=== PATIENT | female | born 1975 | race Caucasian/White ===

== ENCOUNTER 2018-04-23 13:38 | Outpatient (CLI) | payer MEDICAID ==
--- NOTE | 2018-04-23 16:28 | MMO ---
BILATERAL SCREENING MAMMOGRAM: Date: 04/23/18 HISTORY: 42-year-old female. Routine screening mammography. History of breast augmentation. COMPARISON: Previous mammograms at unknown facility. Current study will be treated as a baseline mammogram. TECHNIQUE: CC and MLO views of both breasts are submitted for interpretation. Images are obtained with implants present and implants displaced. FINDINGS: The breasts are composed of scattered fibroglandular tissue. Bilaterally, no suspicious dominant mass , architectural distortion, or suspicious calcifications. Bilateral implants are intact. IMPRESSION: BIRADS 2: Benign Finding(s) RECOMMENDATION: Annual mammogram. POS: [facility]
== END 2018-04-23 13:39 | disposition home or self-care (01) ==
LOC: SCSMAMMO 13:38
PROVIDERS: ATTEND Internal Medicine
DX: Z12.31 Encounter for screening mammogram for malignant neoplasm of breast (principal)
CPT/HCPCS: 77067